=== PATIENT | male | born 1950 | race Hispanic/Latino ===

== ENCOUNTER → 2017-11-05 | Outpatient (CLI) | payer OTHER ==
[~2017-11-05] MED LIST: DIATRIZOATE MEGL/DIATRIZOA SOD 30 ML BTL PO ONE; IOPAMIDOL 370 MG/ML 200 ML INFUS..BTL INJ ONE; SODIUM CHLORIDE 0.9% 50ML 50 ML ONE
[2017-11-05 07:58] LABS: BASOPHILS % 0.5 % (0.0-1.0); EOSINOPHILS # (AUTO) 0.1 (0.0-0.4); EOSINOPHILS % 2.1 % (0.0-6.0); HEMATOCRIT 40.5 % (38.2-49.6); LYMPHOCYTES # (AUTO) 1.2 (1.0-3.2); LYMPHOCYTES % 28.6 % (18.0-39.1); MEAN CORPUSCULAR HEMOGLOBIN 32.4 pg (28-32); MEAN CORPUSCULAR HGB CONC 34.6 g/dL (31-35); MEAN CORPUSCULAR VOLUME 93.8 fL (81-99); MONOCYTES # (AUTO) 0.4 (0.2-0.8); MONOCYTES % 9.1 % (4.4-11.3); NEUTROPHILS # (AUTO) 2.6 (2.1-6.9); NEUTROPHILS % 59.7 % (38.7-80.0); PLATELET COUNT 156 x10e3/uL (140-360); RED BLOOD COUNT 4.32 x10e6/uL (4.3-5.7); RED CELL DISTRIBUTION WIDTH 12.5 % (11.7-14.4)
[2017-11-05 08:01] LABS: BILIRUBIN,URINE NEGATIVE (NEGATIVE); KETONES,URINE NEGATIVE (NEGATIVE); LEUKOCYTE ESTERASE ,URINE NEGATIVE (NEGATIVE); NITRITE,URINE NEGATIVE (NEGATIVE); PROTEIN,URINE DIPSTICK NEGATIVE (NEGATIVE); URINE UROBILINOGEN 0.2 mg/dL (0.2 - 1)
[2017-11-05 08:09] LABS: CLARITY,URINE CLEAR (CLEAR); COLOR,URINE YELLOW (YELLOW)
[2017-11-05 08:11] LABS: ANION GAP 12.1 mmol/L (8-16); BLOOD UREA NITROGEN 17 mg/dL (7-26); BUN/CREATININE RATIO 16 (6-25); CALCIUM 8.7 mg/dL (8.4-10.2); CARBON DIOXIDE 24 mmol/L (22-29); CHLORIDE 108 mmol/L (98-107); CREATININE, SERUM 1.07 mg/dL (0.72-1.25); EST GLOMERULAR FILTRATION RATE > 60 ML/MIN (60-); GLUCOSE 109 mg/dL (74-118); POTASSIUM 4.1 mmol/L (3.5-5.1); SODIUM 140 mmol/L (136-145)
--- NOTE | 2017-11-05 09:11 | Diagnostic Imaging Report ---
PROCEDURE: CT ABDOMEN AND PELVIS WITH CONTRAST TECHNIQUE: The abdomen and pelvis were scanned utilizing a multidetector helical scanner from the diaphragm to the lesser trochanter after the IV administration of 100 cc of Isovue 370 and the oral administration of Gastrografin. Coronal and sagittal multiplanar reformations were obtained. COMPARISON: None. INDICATIONS: MBILICAL HERNIA. PRE-OP EVALUATION FINDINGS: LOWER THORAX: Normal. HEPATOBILIARY: No focal hepatic lesions. No biliary ductal dilatation. SPLEEN: No splenomegaly. PANCREAS: No focal masses or ductal dilatation. ADRENALS: No adrenal nodules. KIDNEYS/URETERS: Atrophic right kidney. The left kidney is unremarkable, without hydronephrosis, calculus, or mass lesion. PELVIC ORGANS/BLADDER: The urinary bladder is incompletely distended but otherwise unremarkable. Punctate calcification in the central prostate. PERITONEUM / RETROPERITONEUM: No free air or fluid. LYMPH NODES: No pelvic sidewall, retroperitoneal, or mesenteric lymphadenopathy. VESSELS: The minimal atherosclerotic calcification of the abdominal aorta and iliac arterial systems without aneurysmal dilatation. Portal vein, splenic vein, and central superior mesenteric vein are patent. GI TRACT: The large bowel shows no gross distention or wall thickening. There are a few descending colon diverticula without evidence of diverticulitis. Normal appendix. No small bowel dilatation to suggest obstruction. BONES AND SOFT TISSUES: No osseous destructive lesions. Multilevel degenerative disc changes and degenerative facet arthropathy of the lumbar spine. Umbilical hernia neck measures 2.3 cm in transverse dimension. The hernia sac measures 6.1 cm craniocaudal by 3.5 cm AP by 8.3 cm transverse and contains only omental fat, without significant inflammatory change. IMPRESSION: Fat containing umbilical hernia measuring 8.3 cm in maximum dimension, with rectus defect measuring 2.3 cm transversely, as described above. Atrophic right kidney. Atherosclerotic vascular disease. Dictated by: Carl Heller M.D. on 11/05/2017 at 9:10 Electronically approved by: Carl Heller M.D. on 11/05/2017 at 9:10
== END ==
LOC: CT 07:20
PROVIDERS: ATTEND Surgery
DX: K42.9 Umbilical hernia without obstruction or gangrene (principal)
CPT/HCPCS: 36415; 74177; 80048; 81003; 85025; 93005; Q9967

== ENCOUNTER → 2018-04-19 | Day surgery (SDC) | payer OTHER ==
[2018-04-08 08:24] LABS: BASOPHILS % 0.7 % (0.0-1.0); EOSINOPHILS # (AUTO) 0.1 (0.0-0.4); EOSINOPHILS % 2.7 % (0.0-6.0); HEMATOCRIT 40.4 % (38.2-49.6); HEMOGLOBIN 13.7 g/dL (14.0-18.0); LYMPHOCYTES # (AUTO) 1.2 (1.0-3.2); LYMPHOCYTES % 26.5 % (18.0-39.1); MEAN CORPUSCULAR HEMOGLOBIN 33.3 pg (28-32); MEAN CORPUSCULAR HGB CONC 33.9 g/dL (31-35); MEAN CORPUSCULAR VOLUME 98.3 fL (81-99); MONOCYTES # (AUTO) 0.4 (0.2-0.8); MONOCYTES % 7.8 % (4.4-11.3); NEUTROPHILS # (AUTO) 2.8 (2.1-6.9); NEUTROPHILS % 61.9 % (38.7-80.0); PLATELET COUNT 155 x10e3/uL (140-360); RED BLOOD COUNT 4.11 x10e6/uL (4.3-5.7); RED CELL DISTRIBUTION WIDTH 12.3 % (11.7-14.4)
[2018-04-08 08:41] LABS: ANION GAP 12.7 mmol/L (8-16); BLOOD UREA NITROGEN 20 mg/dL (7-26); BUN/CREATININE RATIO 19 (6-25); CALCIUM 8.7 mg/dL (8.4-10.2); CARBON DIOXIDE 26 mmol/L (22-29); CHLORIDE 107 mmol/L (98-107); CREATININE, SERUM 1.08 mg/dL (0.72-1.25); EST GLOMERULAR FILTRATION RATE > 60 ML/MIN (60-); GLUCOSE 116 mg/dL (74-118); POTASSIUM 4.7 mmol/L (3.5-5.1); SODIUM 141 mmol/L (136-145)
--- NOTE | 2018-04-08 08:53 | Diagnostic Imaging Report ---
PROCEDURE: X-RAY CHEST, TWO VIEWS COMPARISON: 05/02/2017, CT abdomen and pelvis 11/05 2017. INDICATIONS: PRE-OPERATIVE CHEST/HERNIA SURGERY FINDINGS: The lungs are well-inflated. No focal consolidation, pleural effusion, or pneumothorax. Hazy opacity along the cardiac apex shown to represent prominent epicardial fat on comparison CT. Mildly tortuous thoracic aorta with otherwise normal cardiomediastinal contour. No pulmonary edema. No acute osseous abnormality. CONCLUSION: No acute cardiopulmonary abnormality. Dictated by: Carl Heller M.D. on 04/08/2018 at 8:59 Electronically approved by: Carl Heller M.D. on 04/08/2018 at 8:59
[~2018-04-19] MED LIST changes: +BACITRACIN 50,000 UNIT VIAL ONE; +BUPIVACAINE 0.25%/EPI 30ML SDV INJ ONE; +CEFAZOLIN SOD 1 GM VIAL ONE; +DEXAMETHASONE SOD PHOS INJ 4 MG/ML VIAL ONE; -DIATRIZOATE MEGL/DIATRIZOA SOD 30 ML BTL PO ONE; +FENTANYL CITRATE/PF 100MCG/2 ML INJ ONE; +GLYCOPYRROLATE INJ 1MG/ 5 ML SYR ONE; -IOPAMIDOL 370 MG/ML 200 ML INFUS..BTL INJ ONE; +KETOROLAC TROMETHAMINE 30 MG/ML VIAL ONE; +LIDOCAINE HCL 2% LOCAL INJ 5 ML SDV VIAL INJ ONE; +METOCLOPRAMIDE HCL 10 MG/2ML VIAL ONE; +MIDAZOLAM HCL 2 MG/2 ML VIAL ONE; +NEOSTIGMINE 5 MG/5ML SYR ONE; +ONDANSETRON HCL INJ 2 MG/ML VIAL ONE; +PROMETHAZINE HCL (IM) 25 MG/ML VIAL ONE; +PROPOFOL IV EMULSION 10 MG/ML 20 ML VIAL ONE; +ROCURONIUM BROMIDE 10 MG/ML 5ML VIAL ONE; +SEVOFLURANE INHAL SOLN 250 ML PEN BTL ONE; -SODIUM CHLORIDE 0.9% 50ML 50 ML ONE
--- NOTE | 2018-04-19 10:00 | Operative Report ---
DATE OF PROCEDURE: April 19, 2018 PREOPERATIVE DIAGNOSIS: Incarcerated periumbilical ventral hernia. POSTOPERATIVE DIAGNOSIS: Incarcerated periumbilical ventral hernia. PROCEDURE PERFORMED: Repair of periumbilical ventral hernia with omphalectomy, partial omentectomy and preperitoneal and an intra-abdominal placement of Proceed ventral patch, medium size mesh. ANESTHESIA: General. ESTIMATED BLOOD LOSS: Minimal. DRAINS: None. COMPLICATIONS: None. INDICATIONS AND FINDINGS: The patient is a 67-year-old male, admitted for repair of periumbilical ventral hernia. He had been complaining of increasing in size of hernia located around the umbilicus and he was unable to reduce this recently which was not the case prior to that. INTRAOPERATIVE FINDINGS: The patient had a periumbilical ventral hernia with herniation of properitoneal fat. Proceed ventral patch medium size was placed. DESCRIPTION OF THE PROCEDURE: With the patient lying on the operative table in the supine position after administration of general anesthesia, he was prepped and draped for repair of periumbilical ventral hernia. An elliptical incision was made around the umbilicus and the dissection was carried down through skin, subcutaneous tissue until the hernia was identified. It was dissected free from the surrounding tissues. The hernia consisted of omentum. A partial omentectomy was then performed by clamping the omentum between clamps and tying it off with 2-0 Vicryl. After we reduced the incarceration of the omentum within the hernia, we went ahead and then placed a Proceed ventral patch mesh in the preperitoneal space. We then tacked the mesh with a series of 2-0 Ethibond sutures including the straps as well at the 12 and 6 o'clock positions to prevent migration of the mesh. We then cut the straps and then closed the fascia to obliterate the space also with a series of 0-Ethibond sutures. There was no undue tension on the repair. At this point, we then irrigated the wound and closed the incision with a combination of 0 Vicryl, 2-0 chromic catgut and 2-0 and 3-0 silk for the skin. Sterile dressing was applied. Patient tolerated the procedure well and was taken to recovery room in stable condition. Job#: [id number] GE
[2018-04-19 11:15] VITALS: BP 123/79
== END | disposition home or self-care (01) ==
LOC: OR 05:11
PROVIDERS: ATTEND Surgery
DX: K43.6 Other and unspecified ventral hernia with obstruction, without gangrene (principal); K21.9 Gastro-esophageal reflux disease without esophagitis; I45.10 Unspecified right bundle-branch block; R00.1 Bradycardia, unspecified; Z01.810 Encounter for preprocedural cardiovascular examination; Z01.812 Encounter for preprocedural laboratory examination; Z01.818 Encounter for other preprocedural examination; Z68.37 Body mass index [BMI] 37.0-37.9, adult; Z87.891 Personal history of nicotine dependence; Z90.5 Acquired absence of kidney
CPT/HCPCS: 36415; 49561; 49568; 71046; 80048; 85025; 88307; 93005; C1781; J0690; J1100; J1885; J2001; J2250; J2405; J2550; J2765; J3490